=== PATIENT | female | born 1960 | race Caucasian/White ===

== ENCOUNTER 2021-08-17 15:30 | Observation (INO) | payer OTHER, SELFPAY ==
[2021-08-17] VITALS (8 sets, daily range): BP systolic 103–161; BP diastolic 61–104; PULSE 66–96; RESP 16–21; TEMP 36.4–36.9; O2SAT 94–96; BMI 26.4
--- NOTE | 2021-08-17 15:32 | XRR_ITS ---
PROCEDURE INFORMATION: Exam: XR Chest Exam date and time: 08/17/2021 3:32 PM Age: 61 years old Clinical indication: Pain; Chest pressure; Additional info: Cp TECHNIQUE: Imaging protocol: XR of the chest. Views: 1 view. COMPARISON: [facility] Chest 2 views 07/13/2016 8:12 AM FINDINGS: Lungs: Unremarkable. No consolidation. Pleural spaces: Unremarkable. No pleural effusion. No pneumothorax. Heart/Mediastinum: Unremarkable. No cardiomegaly. Bones/joints: Rotator cuff anchor noted in the right humeral head. Visualized osseous structures are intact. XR/XR chest 1V portable [id number] IMPRESSION: No acute findings.
--- NOTE | 2021-08-17 15:32 | ECG_ITS ---
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 Measurements Intervals [place] Rate: 100 P: 55 WV: 120 QRS: -22 QRSD: 81 T: 75 QT: 328 QTc: 424 Interpretive Statements SINUS TACHYCARDIA LOW QRS VOLTAGE IN PRECORDIAL LEADS [QRS DEFLECTION < 1.0 mV IN CHEST LEADS] PROBABLE INFERIOR MYOCARDIAL INFARCTION , PROBABLY OLD [35 ms Q WAVE IN II/aVF] No previous ECG available for comparison Electronically Signed On 08-18-2021 16:13:18 MEAT CUTTER by Rosemarie Mckeon M.D. [id number]
[2021-08-17 15:58] LABS: Basophils % 0.5 %; Eosinophils # 0.1 10^3/uL (0.0-0.8); Eosinophils % 1.4 %; Hematocrit 48.4 % (37.0-47.0); Hemoglobin 16.2 g/dL (11.5-15.3); Lymphocytes # 2.5 10^3/uL (0.8-4.8); Mean Corpuscular HGB Conc 33.5 g/dL (30.0-36.0); Mean Corpuscular Hemoglobin 30.6 pg (28.0-34.0); Mean Corpuscular Volume 91.5 fl (81-99); Mean Platelet Volume 10.1 fL (7.4-10.4); Monocytes # 0.8 10^3/uL (0.2-0.9); Monocytes % 9.1 %; Neutrophils # 5.24 10^3/uL (1.8-7.7); Neutrophils % 59.8 %; Nucleated Red Blood Cells % 0 %; Platelet Count 229 10^3/cmm (130-400); Red Blood Count 5.29 10^6/uL (4.1-5.3); White Blood Count 8.8 10^3/uL (4.0-10.0)
--- NOTE | 2021-08-17 16:21 | W.ED.GENADLT ---
HPI - General Adult General: Chief complaint: Chest Pain Stated complaint: Chest Pain Time Seen by Provider: 08/17/21 15:43 History of Present Illness: CC: Chest Pain HPI: This is a [61] yo patient hx of HTN, smoking presenting to the ED w/ acute onset intermittent substernal chest pain lasting for 5-10 minutes a time x 4 hours while at [employer]. She reports that while at [employer] this morning seen his son getting Quaker, patient felt chest pressure starting at rest. Patient says that over the last 3 days, the episodes of chest pressure has gotten significantly worse. Patient is currently followed by the [facility] and has an outpatient stress test due in 1 month. Patient has no exertional shortness of breath. The chest pain is not tearing in nature and does not radiate to the back. Endorse nausea but has no associated with vomiting or decreased PO intake. Denies any recent sympathomimetic drug use. Patient denies any cough. Denies palpitations, syncope symptoms. Pain not positional. Norecent immobility, surgery, unilateral leg swelling, or prior PE. Patient denies any orthopnea, paroxysmal nocturnal dyspnea, weight gain, or increased leg swellings. Onset: 4 hrs ago acutely, multiple episodes in the last 3 days Duration: ongoing for the last 3 days Location: home Severity: moderate Associated symptoms: Reports chest pain; Deny dyspnea, nausea, rash, palpitations or vomiting Review of Systems Const: Denies: fever(s) or chills Eyes: Denies: change in vision ENMT: Denies: mouth pain Card: Reports: chest pain; Denies: palpitations Resp: Denies: dyspnea or non-productive cough GI: Denies: abdominal pain, nausea, vomiting or diarrhea : Denies: dysuria Musc: Denies: extremity pain Skin/Breast: Denies: rash or new lesions Neuro: Denies: weakness in extremities Psych: Reports: other (Normal mood) Bertin/Lymph: Denies: easy bruising PFSH ED PFSH: Medical History (Updated 08/17/21 @ 16:23 by Yefri Landers MD) Hypertension Social History (Updated 08/17/21 @ 16:23 by Yefri Landers MD) Smoking and tobacco status: current every day smoker Alcohol intake: never Substance/Drug Use: never Physical Exam Const: COMMON NORMALS: alert HENMT: COMMON NORMALS: atraumatic HEAD & SCALP: atraumatic MOUTH: moist mucous membranes not abnormal Eye: COMMON NORMALS: EOMs intact bilaterally and conjunctivae normal CONJUNCTIVA: Yes conjunctivae normal Neck/C-Spine: COMMON NORMALS: full ROM and supple Resp: COMMON NORMALS: normal respiratory effort and clear to auscultation bilaterally AUSCULTATION: clear to auscultation bilaterally Cardio: COMMON NORMALS: regular rate RATE: regular rate OTHER: 2+ radial pulses b/l GI: COMMON NORMALS: Soft to palpation and non-tender PALPATION: Yes Soft to palpation Extremity: COMMON NORMALS: full ROM Neuro: SENSORIUM/ORIENTATION: Yes alert MOTOR EXAM: No Abnormal motor strength present and Other motor observations present (no focal motor deficits) Psych: COMMON NORMALS: speech normal SPEECH: Yes normal speech MOOD & AFFECT: Yes euthymic mood Course Vital Signs: Vital signs: Vital Signs Temperature 98.1 F 08/17/21 15:55 Pulse Rate 90 08/17/21 15:55 Respiratory Rate 16 08/17/21 15:55 Blood Pressure 148/104 08/17/21 15:55 Pulse Oximetry 95 08/17/21 15:55 MDM - General Adult Medical Decision Making [61]yo patient w/ hx of HTN and smoking presenting to the ED With acute substernal chest pain X 4 hrs with hx of similar prior pain. Currently mild chest pain. Patient received ASA and nitro in the ED with improvement in symptoms of chest pressure. Given History And Exam today I have moderate to high suspicion for ACS/UA/NSTEMI. Today, I have NO suspicion for pneumothorax, pneumonia, pulmonary embolus, tamponade, aortic dissection or other emergent problem as a cause for this presentation. ECG did not show any signs of acute STEMI. Workup: ECG x 2, CXR, CBC, BMP, Troponin x 2 Intervention: ASA 325mg, SL nitroglycerin Findings: ECG: No overt evidence of STEMI, hyperacute T waves, localizable STD or T wave inversions. No evidence of Brugada?s sign, delta wave, epsilon wave, significantly prolonged QTc, or malignant arrhythmia. No Q waves. Troponin: Negative x 1 Other Labs unremarkable for emergent problems. CXR: Without PTX, PNA, or widened mediastinum HEART score: 5 [5:30pm] On reassessment, the patient is currently chest pain free. S/p aspirin 325mg. Pending repeat troponin. HDS, AAOx3, no signs of respiratory distress. EKG is nonishcemic. First troponin wnl. Chest pain improved with morphine and nitroglycerin. Disposition: Inpatient admission. Lab Data : 08/17/21 15:48 08/17/21 15:48 Radiology Impressions Chest X-Ray 08/17/21 15:32 IMPRESSION: No acute findings. Laboratory Results WBC 8.8 10^3/uL (4.0-10.0) 08/17/21 15:48 RBC 5.29 10^6/uL (4.1-5.3) 08/17/21 15:48 Hgb 16.2 g/dL (11.5-15.3) H 08/17/21 15:48 Hct 48.4 % (37.0-47.0) H 08/17/21 15:48 MCV 91.5 fl (81-99) 08/17/21 15:48 MCH 30.6 pg (28.0-34.0) 08/17/21 15:48 MCHC 33.5 g/dL (30.0-36.0) 08/17/21 15:48 RDW 13.0 % (12.1-15.1) 08/17/21 15:48 Plt Count 229 10^3/cmm (130-400) 08/17/21 15:48 MPV 10.1 fL (7.4-10.4) 08/17/21 15:48 Neut % (Auto) 59.8 % 08/17/21 15:48 Lymph % (Auto) 29.0 % 08/17/21 15:48 Duchesne % (Auto) 9.1 % 08/17/21 15:48 Eos % (Auto) 1.4 % 08/17/21 15:48 Baso % (Auto) 0.5 % 08/17/21 15:48 Neut # (Auto) 5.24 10^3/uL (1.8-7.7) 08/17/21 15:48 Lymph # (Auto) 2.5 10^3/uL (0.8-4.8) 08/17/21 15:48 Duchesne # (Auto) 0.8 10^3/uL (0.2-0.9) 08/17/21 15:48 Eos # (Auto) 0.1 10^3/uL (0.0-0.8) 08/17/21 15:48 Baso # (Auto) 0.0 10^3/uL (0.0-0.1) 08/17/21 15:48 Nucleated RBC % (auto) 0 % 08/17/21 15:48 Nucleated RBCs # 0.0 /100WBC 08/17/21 15:48 Sodium 137 mmol/L (136-145) 08/17/21 15:48 Potassium 4.0 mmol/L (3.5-5.1) 08/17/21 15:48 Chloride 101 mmol/L (98-107) 08/17/21 15:48 Carbon Dioxide 25 mmol/L (22-29) 08/17/21 15:48 Anion Gap 15.0 (5-19) 08/17/21 15:48 BUN 14 mg/dL (8-23) 08/17/21 15:48 Creatinine 0.6 mg/dL (0.5-0.9) 08/17/21 15:48 GFR Calculation 101.6 mL/min (90-130) 08/17/21 15:48 Glucose 203 mg/dL (65-115) H 08/17/21 15:48 Calculated Osmolality 290 mOsm/kg (285-295) 08/17/21 15:48 Calcium 10.0 mg/dL (8.5-10.5) 08/17/21 15:48 Total Bilirubin 0.2 mg/dL (0.15-1.2) 08/17/21 15:48 AST 19 U/L (0-32) 08/17/21 15:48 ALT 21 U/L (0-33) 08/17/21 15:48 Alkaline Phosphatase 72 IU/L (35-105) 08/17/21 15:48 Troponin T Baseline 6 ng/L (0-10) 08/17/21 15:48 Total Protein 7.6 g/dL (6.6-8.7) 08/17/21 15:48 Albumin 4.3 g/dL (3.5-5.2) 08/17/21 15:48 Globulin 3.3 g/dL (1.3-4.6) 08/17/21 15:48 Imaging Data Other Imaging: Radiologist's impression: Launch?Image General Specific [address] [place] [address] XRay Report Signed Patient: Michelle Esposito Unit #: [id number] : 1960 Age/Sex: 61 / F ADM Date: 08/17/21 Loc: ER Room/Bed: Attending Dr: Ordering Provider/Ordering MD: Truman Camarena MD Date of Service: 08/17/21 Procedure(s): XR chest 1V portable [id number] Accession Number(s): [id number] Report Number: [id number] PROCEDURE INFORMATION: Exam: XR Chest Exam date and time: 08/17/2021 3:32 PM Age: 61 years old Clinical indication: Pain; Chest pressure; Additional info: Cp TECHNIQUE: Imaging protocol: XR of the chest. Views: 1 view. COMPARISON: [facility] Chest 2 views 07/13/2016 8:12 AM FINDINGS: Lungs: Unremarkable. No consolidation. Pleural spaces: Unremarkable. No pleural effusion. No pneumothorax. Heart/Mediastinum: Unremarkable. No cardiomegaly. Bones/joints: Rotator cuff anchor noted in the right humeral head. Visualized osseous structures are intact. XR/XR chest 1V portable [id number] IMPRESSION: No acute findings. ? Dictated By: Blue Taylor DO Signed By: Blue Taylor DO Signed Date/Time: 08/17/21 1609 DD/ 1532 Discharge Plan Discharge Patient Disposition: Admitted As Inpatient Clinical Impression: Chest pain Condition: Stable Coding Level of Care Code ED Parks Recreation Director for Chg Fwd Exam Comprehensive
[2021-08-17 16:23] LABS: Troponin(5th) Baseline 6 ng/L (0-10)
[2021-08-17] MEDS: aspirin 325 mg Tablet PO (16:27)
[2021-08-17 16:28] LABS: Alanine Aminotransferase 21 U/L (0-33); Albumin Level 4.3 g/dL (3.5-5.2); Alkaline Phosphatase 72 IU/L (35-105); Aspartate Amino Transferase 19 U/L (0-32); Blood Urea Nitrogen 14 mg/dL (8-23); Carbon Dioxide 25 mmol/L (22-29); Chloride 101 mmol/L (98-107); Globulin 3.3 g/dL (1.3-4.6); Glomerular Filtration Rate 101.6 mL/min (90-130); Glucose 203 mg/dL (65-115); Osmolality Calculated 290 mOsm/kg (285-295); Sodium 137 mmol/L (136-145); Total Bilirubin 0.2 mg/dL (0.15-1.2); Total Protein 7.6 g/dL (6.6-8.7)
[2021-08-17] MEDS: nitroglycerin 0.4 mg sublingual Tablet SUBLINGUAL (16:28)
[2021-08-17] MEDS: magnesium sulfate premix 2 GM/50 ML PIGGYBACK IV (16:54)
[2021-08-17] MEDS: sodium chloride 0.9% 1,000 ML 999 ML IV (16:54)
[2021-08-17] MEDS: morphine 4 mg/mL SDV 1 mL 2 MG IVP (16:54)
[2021-08-17] MEDS: diphenhydrAMINE 50 mg/mL SDV 1mL IVP (16:55)
[2021-08-17] MEDS: metoclopramide 5 mg/mL SDV 2 mL 10 MG IVP (16:55)
--- NOTE | 2021-08-17 17:32 | ECG_ITS ---
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 Measurements Intervals [place] Rate: 62 P: 39 IA: 155 QRS: -6 QRSD: 91 T: 56 QT: 417 QTc: 426 Interpretive Statements SINUS RHYTHM LOW QRS VOLTAGE IN PRECORDIAL LEADS [QRS DEFLECTION < 1.0 mV IN CHEST LEADS] INFERIOR MYOCARDIAL INFARCTION , OF INDETERMINATE AGE [40+ ms Q WAVE AND/OR ST/T ABNORMALITY IN II/aVF] Compared to ECG 08/17/2021 15:36:47 Sinus tachycardia no longer present Myocardial infarct finding still present Electronically Signed On 08-18-2021 16:22:06 PEOPLESOFT HCM CONSULTANT by Rosemarie Mckeon M.D. [id number]
--- NOTE | 2021-08-17 20:52 | PM.HP ---
Providers/Chief Complaint Admitting Physician: Vinny Kraft Primary Care Provider: Estevan Huang DO Chief Complaint: Chest Pain History of Present Illness 61-year-old lady with history of hypertension, current smoker, who has been experiencing episodic lightheadedness for about a week. In the last 72 hours he is also been experiencing chest pressure, central, most the time not radiating anywhere, not exacerbated by any particular action, denies any trauma recently, denies that it is worsened by inspiration, did have some painful swallowing occasionally in the past, but not currently, denies reproducibility on chest palpation. Denies fever chills. Denies cough. With pressure occasionally does feel like she might lack being able to catch a deep breath. Today she reports she had had increased frequency of these episodes, lasting 5-10 minutes, and has had at least 3 episodes. She received nitroglycerin in ER, states that she had developed a headache subsequently, it does seem like nitroglycerin did relieve her discomfort almost entirely. At one point she felt that the pressure was radiating to her back, although it was mild. She had not had any persistence of those symptoms. Blood pressures were checked in both arms in ER, and were 128/76 in the left, 124/74 on the right. Chest x-ray in ER without acute findings. Initial troponin , 2-hour also 6. EKG with Q waves inferiorly. She currently has mild if any discomfort. She denies past history of WI. She reports she had an episode that was thought to be a TIA in 2012. Due to this she continues taking low-dose aspirin. She reports she did not feel comfortable taking additional medications at that time, and so is not on statin. Takes lisinopril for hypertension. She states she has been stressed recently. Review of Systems Const: Denies: fever(s), chills, body aches or malaise Eyes: Denies: change in vision or eye redness ENMT: Denies: throat pain, oral sores or ear or mastoid pain Card: Reports: chest pain; Denies: edema, pre-syncope or dyspnea on exertion Resp: Denies: dyspnea, productive cough, change in phlegm color or hemoptysis GI: Denies: abdominal pain, nausea, vomiting, diarrhea, constipation, hematochezia or melena : Denies: flank pain, urinary frequency or hematuria Musc: Denies: back pain, joint swelling or joint redness Skin/Breast: Denies: rash, sores or new lesions Neuro: Denies: headache(s), numbness in extremities, weakness in extremities, dizziness, confusion or seizure-like activity Endo: Denies: polyuria or polydipsia Bertin/Lymph: Denies: easy bleeding or purpura All/Imm: Denies: urticaria, throat swelling or tongue swelling Medications/Allergies Home Medications Medication Instructions Recorded Confirmed Last Taken Type albuterol sulfate 90 mcg/actuation 2 puff INHALATION QID PRN 08/17/21 08/17/21 Unknown History aerosol inhaler aspirin 81 mg chewable tablet 81 mg PO DAILY 08/17/21 08/17/21 08/16/21 History desvenlafaxine succinate 25 mg 25 mg PO DAILY 08/17/21 08/17/21 08/17/21 History tablet,extended release 24 hr fluticasone propionate 50 1 spray INTRANASAL BID PRN 08/17/21 08/17/21 Unknown History mcg/actuation nasal spray,suspension (Flonase Allergy Relief) lactobacillus combination no.4 3 3,000 mmu cells PO DAILY 08/17/21 08/17/21 Unknown History billion cell capsule (Probiotic) levothyroxine 75 mcg tablet 75 mcg PO DAILY 08/17/21 08/17/21 08/17/21 History lisinopril 20 mg tablet 20 mg PO DAILY 08/17/21 08/17/21 08/17/21 History multivitamin 1 tab PO DAILY 08/17/21 08/17/21 Unknown History Allergies Allergy/AdvReac Type Severity Reaction Status Date / Time zolmitriptan [From Zomig] Allergy ALGY-Difficulty Verified 08/17/21 15:40 Breathing PFSH Acute PFSH: Medical History Hypertension Surgical History (Updated 08/17/21 @ 21:06 by Vinny Kraft MD) H/O cervical spine surgery Family History Other Heart disease Social History Smoking and tobacco status: current every day smoker Quit status (tobacco): considering quitting Alcohol intake: never Substance/Drug Use: never Household members: spouse Marital status: Vitals/I&O/Wt Last Vital Signs Temp 97.5 F L 08/17/21 19:05 Pulse 66 08/17/21 19:05 Resp 20 H 08/17/21 19:05 BP 115/65 08/17/21 19:05 Pulse Ox 96 08/17/21 19:05 08/17/21 08/17/21 08/17/21 06:59 14:59 22:59 Intake Total 1050 / 1050 Balance 1050 / 1050 Weight last 48 hrs Weight 76.476 kg Weight 74.389 kg Physical Exam Const: COMMON NORMALS: no acute distress and patient oriented x3 HENMT: COMMON NORMALS: oropharynx normal Neck/C-Spine: COMMON NORMALS: no JVD Resp: COMMON NORMALS: normal respiratory effort and clear to auscultation bilaterally AUSCULTATION: clear to auscultation bilaterally Cardio: COMMON NORMALS: no JVD, regular rhythm, S1 normal heart sound present, S2 normal heart sound present and No murmurs present (Cardio) RHYTHM: regular rhythm HEART SOUNDS: S1 normal heart sound present and S2 normal heart sound present GI: COMMON NORMALS: Normal to inspection, nondistended, normoactive bowel sounds present, Soft to palpation and non-tender PALPATION: Yes Soft to palpation Extremity: COMMON NORMALS: no joint enlargement and no pedal edema Neuro: COMMON NORMALS: patient oriented x3 and moves all extremities Skin: COMMON NORMALS: no rashes or lesions noted GENERAL SKIN EXAM: no rashes or lesions noted Data : 08/17/21 15:48 08/17/21 15:48 A&P Assessment and plan (1) Chest pain: Episodes of chest pressure, she reports with multiple episodes today, with intensification pain. 2 last 72 hours. Possible unstable angina. Started on aspirin. Heart rate in the slower side, hold beta-camacho. Lovenox. Monitor on telemetry. Assess TTE. Chest pain is nearly entirely resolved currently. We will request stress test for tomorrow, however, discussed with her to notify in case of recurrence of symptoms at which point we discussed cardiology consultation would be obtained instead. Status: Acute (2) Smoking addiction: We discussed [place] cessation for 4 minutes. She states she had tried quitting in the past. She states that as of 9:00 in the morning today she has quit. Continue to encourage cessation. Nicotine replacement if needed for cravings. Status: Acute Plan HTN: Monitor blood pressures Attestations Medical Necessity Statement*: Place in observation for additional assessment of episodes of chest pain with risk factors of CAD. Coding Level of Care Code Acute Artificial Breeding Technician for Lashanda Maciel Diagnoses Chest pain R07.9 Smoking addiction F17.200
--- NOTE | 2021-08-17 21:32 | ECG_ITS ---
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 Measurements Intervals [place] Rate: 69 P: 39 [place]: 163 QRS: -5 QRSD: 85 T: 53 QT: 408 QTc: 440 Interpretive Statements SINUS RHYTHM WITH OCCASIONAL SUPRAVENTRICULAR PREMATURE COMPLEXES LOW QRS VOLTAGE IN PRECORDIAL LEADS [QRS DEFLECTION < 1.0 mV IN CHEST LEADS] INFERIOR MYOCARDIAL INFARCTION , OF INDETERMINATE AGE [40+ ms Q WAVE AND/OR ST/T ABNORMALITY IN II/aVF] Compared to ECG 08/17/2021 18:26:48 No significant changes Electronically Signed On 08-18-2021 16:21:53 COM WRITER by Rosemarie Mckeon M.D. [id number]
[2021-08-17] MEDS: enoxaparin 100 mg/mL Syringe 80 MG SUBCUT (22:37)
--- NOTE | 2021-08-18 02:16 | ECG_ITS ---
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 Measurements Intervals [place] Rate: 67 P: 47 [place]: 164 QRS: 9 QRSD: 78 T: 61 QT: 389 QTc: 411 Interpretive Statements SINUS RHYTHM LOW QRS VOLTAGE IN PRECORDIAL LEADS [QRS DEFLECTION < 1.0 mV IN CHEST LEADS] POSSIBLE ANTERIOR MYOCARDIAL INFARCTION , OF INDETERMINATE AGE [30 ms Q WAVE IN V3/V4, OR R < 0.2 mV IN V4] POSSIBLE INFERIOR MYOCARDIAL INFARCTION , OF INDETERMINATE AGE [30 ms Q WAVE IN II/aVF] Compared to ECG 08/17/2021 21:04:12 No significant changes Electronically Signed On 08-18-2021 16:21:29 VERTICAL LATHE OPERATOR by Rosemarie Mckeon M.D. [id number]
[2021-08-18 02:21] VITALS: PULSE 74
[2021-08-18 02:31] LABS: Basophils % 0.3 %; Eosinophils # 0.1 10^3/uL (0.0-0.8); Eosinophils % 1.9 %; Hematocrit 43.6 % (37.0-47.0); Hemoglobin 14.2 g/dL (11.5-15.3); Lymphocytes # 2.7 10^3/uL (0.8-4.8); Lymphocytes % 37.8 %; Mean Corpuscular HGB Conc 32.6 g/dL (30.0-36.0); Mean Corpuscular Hemoglobin 30.5 pg (28.0-34.0); Mean Corpuscular Volume 93.8 fl (81-99); Mean Platelet Volume 10.3 fL (7.4-10.4); Monocytes # 0.7 10^3/uL (0.2-0.9); Monocytes % 9.1 %; Neutrophils # 3.66 10^3/uL (1.8-7.7); Neutrophils % 50.8 %; Nucleated Red Blood Cells % 0 %; Platelet Count 205 10^3/cmm (130-400); Red Blood Count 4.65 10^6/uL (4.1-5.3); Red Cell Distribution Width 13.2 % (12.1-15.1); White Blood Count 7.2 10^3/uL (4.0-10.0)
[2021-08-18 02:45] VITALS: BP 118/73; PULSE 71; RESP 21; TEMP 36.3; O2SAT 95
[2021-08-18 03:02] LABS: Blood Urea Nitrogen 16 mg/dL (8-23); Calcium 8.3 mg/dL (8.5-10.5); Carbon Dioxide 25 mmol/L (22-29); Chloride 106 mmol/L (98-107); Chol HDL Ratio 3.96 mg/dL (0.0-4.40); Cholesterol 198 mg/dL (0-200); Glomerular Filtration Rate 85.1 mL/min (90-130); Glucose 145 mg/dL (65-115); HDL Cholesterol 50 mg/dL (60-100); LDL Cholesterol Calculated 102 mg/dL (50-129); LDL HDL Ratio 2.04 RATIO (0.00-3.22); Osmolality Calculated 296 mOsm/kg (285-295); Sodium 141 mmol/L (136-145); Thyroid Stimulating Hormone 2.46 uIU/mL (0.27-4.20); Triglycerides 231 mg/dL (0-150)
[2021-08-18 03:04] LABS: Anion Gap 13.8 (5-19); Potassium 3.8 mmol/L (3.5-5.1)
--- NOTE | 2021-08-18 06:00 | XRR_ITS ---
PROCEDURE INFORMATION: Exam: XR Chest Exam date and time: 08/18/2021 6:00 AM Age: 61 years old Clinical indication: Other: Hpoxia; Additional info: Hypoxia TECHNIQUE: Imaging protocol: XR of the chest. Views: 1 view. COMPARISON: CR (CHEST, ) 08/17/2021 3:50 PM FINDINGS: Lungs: Unremarkable. No consolidation. Pleural spaces: Unremarkable. No pleural effusion. No pneumothorax. Heart/Mediastinum: Unremarkable. No cardiomegaly. Bones/joints: Unremarkable. XR/XR chest 1V portable [id number] IMPRESSION: No acute findings.
--- NOTE | 2021-08-18 06:00 | USCV_ITS ---
Michelle Esposito Age: 61 Gender: F : 1960 Exam Date: 08/18/2021 05:50 Ordering Phys: Vinny Kraft MD Technologist: CARISSA [place] [facility] [place]: Chest Pain BP: 118 / 73 HR: 67 Rhythm: Sinus Technical Quality: MEASUREMENTS (Male / Female) Normal Values 2D ECHO LV Diastolic Diameter PLAX 2.4 cm 4.2 - 5.9 / 3.9 - 5.3 cm LV Systolic Diameter PLAX 1.7 cm IVS Diastolic Thickness 1.2 cm 0.6 - 1.0 / 0.6 - 0.9 cm IVS Systolic Thickness 1.3 cm LVPW Diastolic Thickness 1.3 cm 0.6 - 1.0 / 0.6 - 0.9 cm LVPW Systolic Thickness 1.5 cm RV Chamber Size 2.4 cm LVOT Diameter 2.0 cm LV Ejection Fraction 2D Teich 57.2 % LV Ejection Fraction MOD 2C 49.3 % LV Ejection Fraction 2C AL 48.4 % LA Diameter 2.8 cm LA Width 2.9 cm LA Height 3.6 cm RA Width 2.8 cm RA Height 3.2 cm Aorta at Sinotubular Diameter 2.1 cm M-MODE Aortic Annulus Diameter 2.7 cm LA Ao Ratio MM 1.0 MV E Point Septal Separation 0.3 cm DOPPLER AV Peak Velocity 79.0 cm/s LVOT Peak Velocity 92.0 cm/s AV Area Cont Eq vti 3.4 cm squared AV Area Cont Eq pk 3.7 cm squared MV Area PHT 3.9 cm squared Mitral E to A Ratio 0.9 MV E' Velocity 72.0 cm/s TR Peak Velocity 225.0 cm/s TR Peak Gradient 20.3 mmHg TV Peak E Velocity 50.0 cm/s Right Atrial Pressure 3.0 mmHg Pulmonary Artery Systolic Pressu 23.3 mmHg PV Peak Velocity 51.3 cm/s RV Acceleration Time 0.1 s RV Ejection Time 0.3 s RV AcT/ET 0.3 FINDINGS Left Ventricle Normal left ventricular size. LV systolic function is normal with EF of 55-60%. No regional wall motion abnormalities. Right Ventricle The right ventricle is normal in size and function. Right Atrium The right atrium is normal in size. Left Atrium The left atrium is normal in size. Mitral Valve Structurally normal mitral valve without significant stenosis or prolapse. There is trace mitral regurgitation. Aortic Valve Structurally normal aortic valve without significant sclerosis or stenosis. There is no aortic regurgitation. Tricuspid Valve Structurally normal tricuspid valve without significant stenosis or regurgitation. Insufficient TR jet to calculate RVSP Pulmonic Valve Structurally normal pulmonic valve without significant stenosis. There is no pulmonic regurgitation. Pericardium Normal pericardium without effusion. Aorta Normal ascending aorta dimension. CONCLUSIONS LV systolic function is normal with EF of 55-60% No regional wall motion abnormalities Trace mitral regurgitation Compared to prior echocardiogram from 12/20/2018, no significant changes are noted Christopher Cuellar MD (Electronically Signed) Final Date: 18 August 2021 11:49 S
[2021-08-18 06:48] VITALS: BP 135/74; PULSE 68; RESP 20; TEMP 35.7; O2SAT 96
[2021-08-18] MEDS: regadenoson 0.4 Mg/5 ml Syringe IVP (07:42)
[2021-08-18 07:54] VITALS: BP 118/71; PULSE 93
--- NOTE | 2021-08-18 08:00 | ECG_ITS ---
[facility] Test Date: 2021-08-18 Pat Name: Michelle Esposito Department: Room: 105 Gender: Female Charcoal Unloader: Lachelle Onofre : 1960 Requested By: Vinny Kraft Order Number: [id number] Roly MD: Rosemarie Mckeon M.D. Interpretive Statements NAME OF STUDY: LEXISCAN SESTAMIBI STRESS TEST INDICATION: Chest Pain PROCEDURE: At the baseline, the blood pressure was 114/76 mmHg, oxygen saturation 91% with a heart rate of 71 bpm. The electrocardiogram showed normal sinus rhythm, normal axis. RSR' in V1 and V2 consider normal variant. The Lexiscan was infused over a period of 20 seconds. A total of 0.4 milligrams of Lexiscan was infused. The stress phase was continued for a total of 5 minutes. Heart rate at the end of the stress phase was 93 bpm, oxygen saturation 94% with a blood pressure of 82/65 mmHg. The EKG at the peak infusion revealed sinus rhythm with no significant ST-T wave changes. Sestamibi was injected 20 seconds after the Lexiscan infusion. Blood pressure at the end of the recovery phase was 118/71 mmHg, oxygen saturation 92% with a heart rate of 92 beats per minute. CONCLUSION: 1. No significant EKG changes with the LexiScan infusion. 2. No LexiScan induced chest pain or cardiac arrhythmia. 3. Normal blood pressure and heart rate response. 4. Sestamibi/sestamibi perfusion scan pending; see separate report. Electronically Signed On 08-18-2021 16:49:14 TIME CLOCK MECHANIC by Rosemarie Mckeon M.D. [email or web address] [email or web address] [id number]
[2021-08-18] MEDS: desvenlafaxine 50 mg Tablet 25 MG PO (09:52)
[2021-08-18] MEDS: aspirin 325 mg Tablet PO (09:53)
[2021-08-18] MEDS: levothyroxine 75 mcg Tablet PO (09:53)
--- NOTE | 2021-08-18 10:28 | P.DS_ITS ---
Discharge Providers Date of Admission: 08/17/21 16:58 Date of Discharge: August 18, 2021 Attending Provider at Admission: Vinny Kraft Attending Provider at Discharge: Violette Little MD Primary Care Provider: Estevan Huang DO Diagnoses at Discharge Discharge Diagnosis (1) Chest pain: Status: Acute (2) Smoking addiction: Status: Acute Reason for Visit Reason for Visit: Chest Pain Hospital Course Hospital Course Admission note done by Dr. Fountain 61-year-old lady with history of hypertension, current smoker, who has been experiencing episodic lightheadedness for about a week.? In the last 72 hours he is also been experiencing chest pressure, central, most the time not radiating anywhere, not exacerbated by any particular action, denies any trauma recently, denies that it is worsened by inspiration, did have some painful swallowing occasionally in the past, but not currently, denies reproducibility on chest palpation.? Denies fever chills.? Denies cough.? With pressure occasionally does feel like she might lack being able to catch a deep breath.? Today she reports she had had increased frequency of these episodes, lasting 5-10 minutes, and has had at least 3 episodes.? She received nitroglycerin in ER, states that she had developed a headache subsequently, it does seem like nitroglycerin did relieve her discomfort almost entirely.? At one point she felt that the pressure was radiating to her back, although it was mild.? She had not had any persistence of those symptoms.? Blood pressures were checked in both arms in ER, and were 128/76 in the left, 124/74 on the right.? Chest x-ray in ER without acute findings.? Initial troponin , 2-hour also 6.? EKG with Q waves inferiorly.? She currently has mild if any discomfort. She denies past history of LA.? She reports she had an episode that was thought to be a TIA in 2012.? Due to this she continues taking low-dose aspirin.? She reports she did not feel comfortable taking additional medications at that time, and so is not on statin.? Takes lisinopril for hypertension. She states she has been stressed recently. Hospital course At the time of my evaluation on 08/18 patient was asymptomatic Normal hemodynamics, she was saturating well on room air, no recurrence of chest pain Stress test negative for any signs of ischemia, echo report is pending Patient will be discharged home, I have not changed any of her medications, triglyceride 231, HDL 50, LDL 102 TSH 2.4 She can continue aspirin and lisinopril Physical Exam Narrative: Patient was laying supine Saturating well on room air Nonfocal neuro exam Abdomen soft Nonlabored breathing S1, S2 at the bedside Discharge Data Studies Completed and Pending Completed Studies During Hospitalization Category Date Time Status Sestamibi Stress Test Request Routine Exams 08/18/21 08:00 Draft XR chest 1V portable [id number] Routine Exams 08/18/21 06:00 Completed XR chest 1V portable [id number] Stat Exams 08/17/21 15:32 Completed NM alvina perf SPECT r/s* [id number] Routine Nuc Med 08/18/21 21:08 Completed Pending at discharge Category Date Time Status Basic Metabolic Panel AM LABS Lab 08/19/21 04:00 Ordered Basic Metabolic Panel AM LABS Lab 08/20/21 04:00 Ordered Complete Blood Count w/Auto AM LABS Lab 08/19/21 04:00 Ordered Complete Blood Count w/Auto AM LABS Lab 08/20/21 04:00 Ordered CV. echo complete* [id number] Routine Ultrasound 08/18/21 06:00 Taken Radiology Impressions Chest X-Ray 08/18/21 06:00 IMPRESSION: No acute findings. Laboratory Results WBC 7.2 10^3/uL (4.0-10.0) 08/18/21 02:00 RBC 4.65 10^6/uL (4.1-5.3) 08/18/21 02:00 Hgb 14.2 g/dL (11.5-15.3) 08/18/21 02:00 Hct 43.6 % (37.0-47.0) 08/18/21 02:00 MCV 93.8 fl (81-99) 08/18/21 02:00 MCH 30.5 pg (28.0-34.0) 08/18/21 02:00 MCHC 32.6 g/dL (30.0-36.0) 08/18/21 02:00 RDW 13.2 % (12.1-15.1) 08/18/21 02:00 Plt Count 205 10^3/cmm (130-400) 08/18/21 02:00 MPV 10.3 fL (7.4-10.4) 08/18/21 02:00 Neut % (Auto) 50.8 % 08/18/21 02:00 Lymph % (Auto) 37.8 % 08/18/21 02:00 Crosby % (Auto) 9.1 % 08/18/21 02:00 Eos % (Auto) 1.9 % 08/18/21 02:00 Baso % (Auto) 0.3 % 08/18/21 02:00 Neut # (Auto) 3.66 10^3/uL (1.8-7.7) 08/18/21 02:00 Lymph # (Auto) 2.7 10^3/uL (0.8-4.8) 08/18/21 02:00 Crosby # (Auto) 0.7 10^3/uL (0.2-0.9) 08/18/21 02:00 Eos # (Auto) 0.1 10^3/uL (0.0-0.8) 08/18/21 02:00 Baso # (Auto) 0.0 10^3/uL (0.0-0.1) 08/18/21 02:00 Nucleated RBC % (auto) 0 % 08/18/21 02:00 Nucleated RBCs # 0.0 /100WBC 08/18/21 02:00 Sodium 141 mmol/L (136-145) 08/18/21 02:00 Potassium 3.8 mmol/L (3.5-5.1) 08/18/21 02:00 Chloride 106 mmol/L (98-107) 08/18/21 02:00 Carbon Dioxide 25 mmol/L (22-29) 08/18/21 02:00 Anion Gap 13.8 (5-19) 08/18/21 02:00 BUN 16 mg/dL (8-23) 08/18/21 02:00 Creatinine 0.7 mg/dL (0.5-0.9) 08/18/21 02:00 GFR Calculation 85.1 mL/min (90-130) L 08/18/21 02:00 Glucose 145 mg/dL (65-115) H 08/18/21 02:00 Calculated Osmolality 296 mOsm/kg (285-295) H 08/18/21 02:00 Calcium 8.3 mg/dL (8.5-10.5) L 08/18/21 02:00 Total Bilirubin 0.2 mg/dL (0.15-1.2) 08/17/21 15:48 AST 19 U/L (0-32) 08/17/21 15:48 ALT 21 U/L (0-33) 08/17/21 15:48 Alkaline Phosphatase 72 IU/L (35-105) 08/17/21 15:48 Troponin T Baseline 6 ng/L (0-10) 08/17/21 15:48 Troponin T 120 Minute 6.00 ng/L (0-10) 08/17/21 17:45 Delta Troponin T Not Reportable 08/17/21 17:45 Troponin T Hi Sens 6Hr 6.00 ng/L (0-10) 08/17/21 22:12 Troponin T Hi Sens 6Hr Delta Not Reportable 08/17/21 22:12 Total Protein 7.6 g/dL (6.6-8.7) 08/17/21 15:48 Albumin 4.3 g/dL (3.5-5.2) 08/17/21 15:48 Globulin 3.3 g/dL (1.3-4.6) 08/17/21 15:48 Triglycerides 231 mg/dL (0-150) H 08/18/21 02:00 Cholesterol 198 mg/dL (0-200) 08/18/21 02:00 LDL Cholesterol, Calc 102 mg/dL (50-129) 08/18/21 02:00 HDL Cholesterol 50 mg/dL (60-100) L 08/18/21 02:00 LDL/HDL Ratio 2.04 RATIO (0.00-3.22) 08/18/21 02:00 Cholesterol/HDL Ratio 3.96 mg/dL (0.0-4.40) 08/18/21 02:00 TSH 2.46 uIU/mL (0.27-4.20) 08/18/21 02:00 Vitals Last Vital Signs Temp 96.2 F L 08/18/21 06:48 Pulse 93 08/18/21 07:54 Resp 20 H 08/18/21 06:48 BP 118/71 08/18/21 07:54 Pulse Ox 96 08/18/21 06:48 Discharge Plan Discharge Patient Disposition: Home Condition: Stable Prescriptions: Continued lisinopril 20 mg Tablet 20 mg PO DAILY 0RF levothyroxine 75 mcg tablet 75 mcg PO DAILY 0RF aspirin 81 mg Tablet,Chewable 81 mg PO DAILY 0RF albuterol sulfate 90 mcg/actuation HFA aerosol inhaler 2 puff INHALATION QID PRN (Reason: Shortness Of Breath) 0RF desvenlafaxine succinate 25 mg tablet extended release 24 hr 25 mg PO DAILY 0RF multivitamin Tablet 1 tab PO DAILY 0RF Flonase Allergy Relief 50 mcg/actuation Thicket,Suspension 1 spray INTRANASAL BID PRN (Reason: Nasal Congestion) 0RF Rx Instructions: administer into each nostril Probiotic 3 billion cell Capsule 3,000 mmu cells PO DAILY 0RF Rx Instructions: administer with a meal Discharge Orders: Discharge Order (Routine); Ordered 08/18/21 Ordered By: Violette Little Referrals: Estevan Huang DO [Primary Care Provider] - 7-10 days Discharge Diet: Cardiac Discharge Activity: Increase activity as tolerated Patient Instructions: How to Stop Smoking (DC), Opioid Safety Discharge Attestations Time Spent in Discharge Care*: less than 30 min Quality Metrics Clinical Quality Measures [ No reported AMI, CVA or VTE this stay] Coding Level of Care Code Acute Chg FW DC note Diagnoses Chest pain R07.9 Smoking addiction F17.200
--- NOTE | 2021-08-18 11:02 | PC.CHAP ---
Pastoral Care Encounter/Spiritual Assessment Type of Contact [] Declined chair spring assembler visit [] Patient/Family/Request visit [] Outpatient visit [] Follow-up visit [] Physician referral [] Code/Alert [x] Routine visit [] Staff referral [] Actively dying [] Patient sleeping [x] Family support [] [] Out of room [] Palliative care [] [] Receiving care in room [] Pre-surgical visit [] Trauma [] Long length of stay [] ICU visit [] Other: Relational/Emotional Strength [] Patient feels connected with others/family/visitors/staff [] Distress [] Loneliness/isolation [] Abandonment Spirituality of Patient [] Person of Cara [] Attends Faith of their Cara [] Believes in Prayer [] Reads Bible or Bahai materials [] There are Spiritual issues to be addressed Information Technology Intern Interventions [x] Prayer [x] Active listening [x] Non-anxious presence [x] Spiritual/emotional support [] Crisis/trauma care [] Spiritual counseling [] Bereavement support [] Provided bereavement packet [] Provided Bible/devotional materials [] Provided toy/stuffed animal, coloring book to patient or family member [] Provided Communion [] Anointing/[place] [] Salvation [x] Completed spiritual assessment [] Other: Impact on Illness or Injury [] Angry [] Fearful [] Anxious [] Often cries [] Exhaustion [] Unable to work [] Unable to attend restoration [] Unable to walk/stand [] Unable to read [] Unable to drive [] Unable to eat/drink [] Unable to sleep [] Unable to be with family [] Patient intubated [] Other: Summary entered in by ER... ran tests getting results today Time spent with patient 10 min
[2021-08-18 11:14] VITALS: BP 141/86; PULSE 80; RESP 18; TEMP 36.7; O2SAT 98
--- NOTE | 2021-08-18 11:23 | PC.NURSE ---
Discharge Note Patient discharged to home via private vehicle accompanied by spouse. All lines removed. Discharge instructions reviewed with patient and/or representative government relations. Patient verbalized understanding of all teaching. Mobile pharmacy medications and/or prescriptions provided. Belongings/home medications returned.
--- NOTE | 2021-08-18 21:08 | NMCV_ITS ---
2 Michelle Esposito Age: 61 Gender: F : 1960 Exam Date: 08/18/2021 06:45 Ordering Phys: Vinny Kraft MD Technologist: MIRYAM Gary Exam Location: [facility] Indications: CHEST PAIN STRESS TEST [facility] IMAGE PROTOCOL Rest/Stress 1 Lexiscan Day Radiopharmaceutical Dose (mCi) Administration Site Administered by Rest: Tc-99m 10.9 IV MIRYAM Hull Sestamibi Stress:Tc-99m 32.6 IV MIRYAM Hull Sestamibi Rest: 18-Aug-2021 60 Discovery 630 Stress: 18-Aug-2021 30 Discovery 630 0.4mg Lexiscan. Images obtained in supine and prone position. SPECT RESULTS Technical Quality: Excellent Raw Data Analysis: Normal Image Corrections: No attenuation or motion correction applied Summed Stress Score: 0 Summed Rest Score: 0 Summed Difference Score: 0 PERFUSION FINDINGS SPECT images demonstrate homogeneous tracer distribution throughout the myocardium. FUNCTIONAL RESULTS (calculated via Gated SPECT) Stress Image LV EF (%): 80 Stress EDV (mL):56 TID: 1.04 Stress ESV (mL):11 FUNCTIONAL FINDINGS: There is normal left ventricular systolic function. IMPRESSIONS 1. Normal myocardial perfusion imaging with no evidence of ischemia 2. LV systolic function is normal Christopher Cuellar MD (Electronically Signed) Final Date: 18 August 2021 09:55 S
== END 2021-08-18 11:30 | disposition home or self-care (01) ==
LOC: ER 17:03 → CSU 17:07
PROVIDERS: Emergency Medicine; Admitting Provider Internal Medicine; Emergency Provider Emergency Medicine; PCP Electrodiagnostic Medicine; Visit Provider Internal Medicine
DX: R07.89 Other chest pain (principal); F17.210 Nicotine dependence, cigarettes, uncomplicated; I10 Essential (primary) hypertension; Z86.73 Personal history of transient ischemic attack (TIA), and cerebral infarction without residual deficits; Z79.82 Long term (current) use of aspirin; Z98.1 Arthrodesis status; Z82.49 Family history of ischemic heart disease and other diseases of the circulatory system; R09.02 Hypoxemia
CPT/HCPCS: 36415; 71045; 78452; 80048; 80053; 80061; 84443; 84484; 85025; 93005; 93017; 93306; 96365; 96372; 96375; 99285; A9500; G0378; J1200; J1650; J2270; J2765; J2785; J3475; J7030

== ENCOUNTER → 2021-10-01 12:00 | Outpatient (BNVA) | payer OTHER, SELFPAY | PROVIDERS: PCP Electrodiagnostic Medicine; Visit Provider Internal Medicine | DX: I10 Essential (primary) hypertension (principal); R07.9 Chest pain, unspecified; R00.2 Palpitations; F17.210 Nicotine dependence, cigarettes, uncomplicated; Z79.82 Long term (current) use of aspirin | CPT/HCPCS: 99203; 99204 ==

== ENCOUNTER → 2021-10-09 12:54 | Outpatient (BNVA) | payer OTHER, SELFPAY | PROVIDERS: PCP Electrodiagnostic Medicine; Visit Provider Internal Medicine | DX: R00.2 Palpitations (principal); I48.91 Unspecified atrial fibrillation; R00.1 Bradycardia, unspecified; R00.0 Tachycardia, unspecified | CPT/HCPCS: 93270 ==

== ENCOUNTER → 2021-10-14 15:34 | Outpatient (BNVA) | payer OTHER, SELFPAY | PROVIDERS: PCP Electrodiagnostic Medicine; Visit Provider Internal Medicine | DX: I48.91 Unspecified atrial fibrillation (principal); R07.9 Chest pain, unspecified; I10 Essential (primary) hypertension; R00.2 Palpitations; F17.200 Nicotine dependence, unspecified, uncomplicated | CPT/HCPCS: 99214 ==

== ENCOUNTER 2021-11-18 07:58 | Outpatient (CLI) | payer OTHER, SELFPAY ==
--- NOTE | 2021-11-18 08:12 | MM_ITS ---
WS: [email or web address] SCREENING DIGITAL BREAST TOMOSYNTHESIS MAMMOGRAM WITH CAD HISTORY: SCREENING COMPARISON: 11/03/2018 and 11/23/2016 Bilateral CC and MLO with tomosynthesis and synthetic mammography submitted. Computer aided detection analyzed. Breast composition: There are scattered areas of fibroglandular density. No suspicious masses or calc ifications. 5 mm ovoid asymmetry in the posterior RIGHT breast may have been present on prior studies . Seen only on the MLO projection. No architectural distortion. MM/[place] [id number] IMPRESSION: BI-RADS: 0-Incomplete: Need additional imaging evaluation FOLLOW UP: Need Additional Imaging Patient describes a palpable abnormality in the RIGHT breast which needs to be further evaluated. The 5 mm ovoid asymmetry seen on the RIGHT MLO may correspon d to this palpable abnormality. Recommend follow-up additional spot compression views and ultrasound.
== END 2021-11-18 07:59 | disposition home or self-care (01) ==
PROVIDERS: PCP Electrodiagnostic Medicine; Visit Provider Nurse Practitioner
DX: Z12.31 Encounter for screening mammogram for malignant neoplasm of breast (principal)
CPT/HCPCS: 77063; 77067

== ENCOUNTER 2021-12-10 10:25 | Outpatient (CLI) | payer OTHER, SELFPAY ==
--- NOTE | 2021-12-10 10:32 | MM_ITS ---
WS: [email or web address] ADDITIONAL VIEWS RIGHT MAMMOGRAM WITH DIGITAL BREAST TOMOSYNTHESIS. RIGHT BREAST ULTRASOUND HISTORY: ABNORMAL MAMMOGRAM COMPARISON: 11/18/2021, 11/03/2018 RIGHT MAMMOGRAM: Spot compression views and true ML with digital breast tomosynthesis and SM. Palpable marker is placed along the lateral RIGHT breast near 9:00. There is an underlying well-circu mscribed 5 mm nodule which is closely associated with the palpable marker. No calcifications or disto rtion. RIGHT BREAST ULTRASOUND 2-D and color Doppler imaging submitted. No abnormality is identified by ultrasound. MM/[place] [id number] IMPRESSION: BI-RADS: 3-Probably Benign FOLLOW UP: 6 Month Follow-up Recommend diagnostic RIGHT mammogram follow-up in 6 months and possible ultraso und. Palpable area is a very small nodule which may be a subcutaneous cyst. Not identified by ultrasound. Therefore, recommend 6 month follow-up.
== END 2021-12-10 10:26 | disposition home or self-care (01) ==
LOC: RAD 10:26
PROVIDERS: PCP Electrodiagnostic Medicine; Visit Provider Nurse Practitioner
DX: R92.8 Other abnormal and inconclusive findings on diagnostic imaging of breast (principal)
CPT/HCPCS: 76642; 77061

== ENCOUNTER → 2022-03-06 11:15 | Outpatient (BNVA) | payer OTHER, SELFPAY | PROVIDERS: PCP Electrodiagnostic Medicine; Visit Provider Internal Medicine Cardiovascular Disease | DX: I48.91 Unspecified atrial fibrillation (principal); I10 Essential (primary) hypertension; F17.200 Nicotine dependence, unspecified, uncomplicated; Z79.01 Long term (current) use of anticoagulants | CPT/HCPCS: 99214 ==

== ENCOUNTER 2022-06-11 09:50 | Outpatient (CLI) | payer OTHER, SELFPAY ==
--- NOTE | 2022-06-11 10:06 | US_ITS ---
WS: [email or web address] RIGHT DIGITAL TOMOSYNTHESIS MAMMOGRAPHY WITH CAD. RIGHT breast ultrasound, limited. HISTORY: 6 month follow-up. COMPARISON: 12/10/2021, 11/18/2021 Technique: CC, MLO and ML views. Spot compression RIGHT CC and MLO. Breast composition: There are scattered areas of fibroglandular density. Nodule is marked with a tri angular marker. Again noted is a 4 mm nodule adjacent to the palpable marker. Not increased in size a nd very difficult to visualize. Very benign in appearance. May be a small lymph node or sebaceous cys t. RIGHT breast ultrasound, limited. The palpable nodule is not identified again by ultrasound. US/US breast RT limited* [id number] IMPRESSION: BI-RADS: 3-Probably Benign FOLLOW UP: 6 Month Follow-up Patient to return in November 2022 for bilateral mammogram. This nodule can be reev aluated at that time for any increase in size. Very benign in appearance.
--- NOTE | 2022-06-11 10:18 | MM_ITS ---
WS: [email or web address] RIGHT DIGITAL TOMOSYNTHESIS MAMMOGRAPHY WITH CAD. RIGHT breast ultrasound, limited. HISTORY: 6 month follow-up. COMPARISON: 12/10/2021, 11/18/2021 Technique: CC, MLO and ML views. Spot compression RIGHT CC and MLO. Breast composition: There are scattered areas of fibroglandular density. Nodule is marked with a tri angular marker. Again noted is a 4 mm nodule adjacent to the palpable marker. Not increased in size a nd very difficult to visualize. Very benign in appearance. May be a small lymph node or sebaceous cys t. RIGHT breast ultrasound, limited. The palpable nodule is not identified again by ultrasound. MM/[place] [id number] IMPRESSION: BI-RADS: 3-Probably Benign FOLLOW UP: 6 Month Follow-up Patient to return in November 2022 for bilateral mammogram. This nodule can be reev aluated at that time for any increase in size. Very benign in appearance.
== END 2022-06-11 09:51 | disposition home or self-care (01) ==
PROVIDERS: PCP Electrodiagnostic Medicine; Visit Provider Nurse Practitioner
DX: R92.8 Other abnormal and inconclusive findings on diagnostic imaging of breast (principal)
CPT/HCPCS: 76642; 77061; G0279

== ENCOUNTER 2022-07-07 13:18 | Outpatient (CLI) | payer OTHER, SELFPAY ==
--- NOTE | 2022-07-07 13:32 | MR_ITS ---
WS: [email or web address] MRI LUMBAR SPINE NONCONTRAST HISTORY: LOWER BACK PAIN COMPARISON: 04/17/2017 TECHNIQUE: Sagittal and axial multisequence imaging is submitted. Normal posterior lumbar alignment. Mild disc space narrowing at L5-S1. No fracture or marrow edema. Disc spaces and vertebral body heights are well-preserved. Conus terminates normally at L1. L1-L2: Normal. L2-L3: Mild disc bulge. Bilateral facet joint arthritis, RIGHT greater than LEFT. Small amount of flu id in the facet joints. L3-L4: Mild annular disc bulging with bilateral facet and ligamentum flavum arthritis. Very mild narr owing of the central canal. L4-L5: Mild annular disc bulging with a focal RIGHT paracentral disc protrusion narrowing the RIGHT s ubarticular recess. Moderate ligamentum flavum and facet arthritis. Mild progression of central and s ubarticular recess stenosis. The disc protrusion is contacting the RIGHT traversing L5 nerve root. Mi ld stenosis centrally. L5-S1: Mild annular disc bulging with bilateral facet joint arthritis. L5 is partially sacralized on the RIGHT. There is encroachment bilaterally upon the S1 nerve roots. There is also contact on the ex iting nerve roots bilaterally, greatest on the LEFT. Moderate stenosis on the LEFT and mild on the RI GHT. Paravertebral soft tissues are normal. MR/MR lumbar spine wo con* [id number] IMPRESSION: 1. Stable RIGHT paracentral disc protrusion at L4-5 contacting and slightly di splacing the traversing RIGHT L5 nerve root. 2. Mild central and bilateral subarticular recess stenosis at L4-5 has progres sed slightly since 2017. 3. Subarticular recess encroachment upon the traversing S1 nerve roots bilater ally. There is also disc contact and facet arthritis encroaching upon the alma sourav at L5-S1. Moderate stenosis LEFT foramen at L5-S1, mild progression since 2 017.
== END 2022-07-07 13:19 | disposition home or self-care (01) ==
PROVIDERS: PCP Electrodiagnostic Medicine; Visit Provider Electrodiagnostic Medicine
DX: M51.26 Other intervertebral disc displacement, lumbar region (principal); M48.061 Spinal stenosis, lumbar region without neurogenic claudication; M48.07 Spinal stenosis, lumbosacral region
CPT/HCPCS: 72148

== ENCOUNTER → 2022-09-04 08:14 | Outpatient (BNVA) | payer OTHER, SELFPAY | PROVIDERS: PCP Electrodiagnostic Medicine; Visit Provider Nurse Practitioner Family | DX: I48.91 Unspecified atrial fibrillation (principal); I10 Essential (primary) hypertension; Z79.01 Long term (current) use of anticoagulants; F17.200 Nicotine dependence, unspecified, uncomplicated; Z79.82 Long term (current) use of aspirin | CPT/HCPCS: 99214 ==

== ENCOUNTER 2023-01-18 08:24 | Outpatient (CLI) | payer OTHER, SELFPAY ==
--- NOTE | 2023-01-18 08:42 | MM_ITS ---
WS: [email or web address] DIAGNOSTIC BILATERAL DIGITAL BREAST TOMOSYNTHESIS MAMMOGRAPHY WITH CAD Bilateral breast ultrasound, limited HISTORY: 6MFU RIGHT breast. New palpable mass LEFT axilla. COMPARISON: 06/11/2022, 12/10/2021 and 11/03/2018 TECHNIQUE: Bilateral craniocaudad, mediolateral oblique, and mediolateral views are submitted with to mosaveesis and SM. Spot compression views bilateral MLO views. Computer aided detection utilized. Breast composition: There are scattered areas of fibroglandular density. Benign-appearing lymph nodes are noted within the region of the palpable markers bilaterally. There is no distortion or additiona l soft tissue mass or interval change. Ultrasound will be performed. Bilateral breast ultrasound, limited. RIGHT: Ultrasound directed to the palpable area by the patient. There is no mass identified. LEFT: Ultrasound directed to the palpable area near the axilla by the patient. No abnormality identif ied. MM/[place] [id number] IMPRESSION: BI-RADS: 2-Benign FOLLOW UP: 1 Year Follow-up Return to annual screening mammography. No abnormality is noted in the region o f the palpable nodules.
--- NOTE | 2023-01-18 09:32 | US_ITS ---
WS: [email or web address] DIAGNOSTIC BILATERAL DIGITAL BREAST TOMOSYNTHESIS MAMMOGRAPHY WITH CAD Bilateral breast ultrasound, limited HISTORY: 6MFU RIGHT breast. New palpable mass LEFT axilla. COMPARISON: 06/11/2022, 12/10/2021 and 11/03/2018 TECHNIQUE: Bilateral craniocaudad, mediolateral oblique, and mediolateral views are submitted with to mosaveesis and SM. Spot compression views bilateral MLO views. Computer aided detection utilized. Breast composition: There are scattered areas of fibroglandular density. Benign-appearing lymph nodes are noted within the region of the palpable markers bilaterally. There is no distortion or additiona l soft tissue mass or interval change. Ultrasound will be performed. Bilateral breast ultrasound, limited. RIGHT: Ultrasound directed to the palpable area by the patient. There is no mass identified. LEFT: Ultrasound directed to the palpable area near the axilla by the patient. No abnormality identif ied. US/US breast BI limited* [id number] IMPRESSION: BI-RADS: 2-Benign FOLLOW UP: 1 Year Follow-up Return to annual screening mammography. No abnormality is noted in the region o f the palpable nodules.
== END 2023-01-18 08:25 | disposition home or self-care (01) ==
PROVIDERS: PCP Electrodiagnostic Medicine; Visit Provider Nurse Practitioner
DX: N63.32 Unspecified lump in axillary tail of the left breast (principal); N63.10 Unspecified lump in the right breast, unspecified quadrant
CPT/HCPCS: 76642; 77062; G0279

== ENCOUNTER → 2023-03-29 15:13 | Outpatient (BNVA) | payer OTHER, SELFPAY | PROVIDERS: PCP Electrodiagnostic Medicine; Visit Provider Internal Medicine Cardiovascular Disease | DX: I48.91 Unspecified atrial fibrillation (principal); Z79.01 Long term (current) use of anticoagulants; I10 Essential (primary) hypertension; F17.200 Nicotine dependence, unspecified, uncomplicated | CPT/HCPCS: 99214 ==

== ENCOUNTER 2023-10-28 14:00 | Outpatient (CLI) | payer OTHER, SELFPAY ==
--- NOTE | 2023-10-28 14:05 | CT_ITS ---
WS: [email or web address] CT ABDOMEN AND PELVIS WITH AND WITHOUT CONTRAST HISTORY: CHRONIC ABDOMINAL PAIN TECHNIQUE: Unenhanced 5 mm axial imaging first performed through the abdomen. Post contrast imaging t hrough the abdomen and pelvis. Oral contrast has been provided. Sagittal and coronal reformats are s ubmitted. All CT scans at [facility] use at least one of these dose optimization techniques: automated exposure control; mA and/or kV adjustment per patient size (includes targeted exams where d ose is matched to clinical indication); or iterative reconstruction. CONTRAST: Omnipaque 350; 95 mL IV. DLP: 890.80 mGy.cm COMPARISON: 07/28/2017 Lung bases are clear. Small hiatal hernia. Normal size heart. Normal size liver. Reidentified are several low-attenuation masses within the liver. These have been previously described and evaluated since 2008. These masses have slightly increased in size but are m ost consistent with benign hemangiomas. The largest in the LEFT lobe of the liver measures 2.2 x 2.6 cm. Normal portal vein. Normal gallbladder and pancreas. Common bile duct is normal. Normal spleen. Normal RIGHT adrenal gland. Mild hyperplasia and thickening of the LEFT adrenal gland is been previou sly described. Mild increase since 2018. Kidneys are normal size. No renal calcifications or obstruct ion. Atherosclerosis aorta. Normally distended stomach. No small bowel obstruction. Marked constipation throughout the colon. Nor mal appendix. No diverticular disease. No wall thickening. Uterus is midline. No free fluid in the pelvis. Negative urinary bladder. No adenopathy or ascites. CT/CT abdomen pelvis wo/w [id number] IMPRESSION: 1. No acute abdominal or pelvic abnormalities. 2. Hepatic hemangiomas have slightly increased in size since 2018. 3. Known thickening of the LEFT adrenal gland since 2018 with mild progression . 4. No renal obstruction. 5. Marked constipation. 6. Small hiatal hernia.
[2023-10-28] MEDS: iohexol 300 mg/mL 100 mL Btl IV (15:18)
[2023-10-28] MEDS: iohexol 300 mg/mL 100 mL Btl PO (15:18)
== END 2023-10-28 14:01 | disposition home or self-care (01) ==
LOC: RAD 14:00
PROVIDERS: PCP Electrodiagnostic Medicine; Visit Provider Electrodiagnostic Medicine
DX: R10.9 Unspecified abdominal pain (principal); D18.09 Hemangioma of other sites; E27.9 Disorder of adrenal gland, unspecified; K44.9 Diaphragmatic hernia without obstruction or gangrene; K59.00 Constipation, unspecified
CPT/HCPCS: 74178; Q9967

== ENCOUNTER 2024-04-12 08:25 | Outpatient (CLI) | payer OTHER, SELFPAY ==
--- NOTE | 2024-04-12 08:33 | CT_ITS ---
WS: [email or web address] CT adrenals with and without contrast. HISTORY: MILDLY ENLARGED LEFT ADRENAL GLAND Noncontrast 5 mm imaging is performed through the abdomen with attention to the adrenal glands. Addit ional 1 minute and 15 minute delayed images are then performed through the adrenal glands. CONTRAST: Omnipaque 350; 95 mL IV. DLP: 896.[address] scans at [facility] use at least one of these dose optimization techniques: automated e xposure control; mA and/or kV adjustment per patient size (includes targeted exams where dose is matc hed to clinical indication); or iterative reconstruction. COMPARISON: 10/28/2023, 07/28/2017 Lower thorax: Lungs are clear. Normal size heart. Small hiatal hernia. Liver: Size liver with several hemangiomas which have been previously described. The largest in the L EFT lobe measures 2.0 x 2.7 cm. There are additional too small to characterize peripheral hypodensiti es. Normal portal vein. Gallbladder: Normal. Pancreas: Normal. Spleen: Normal. ADRENAL GLANDS. RIGHT: Normal. No mass or enlargement. LEFT: Low-attenuation mass in the medial LEFT adrenal limb measures 1.4 x 1.0 cm. This mass has been stable on multiple prior examinations. On the noncontrast exam Hounsfield units are low consistent wi th an adenoma. Absolute washout value of 85% also confirms adenoma. Right kidney: Normal. Left kidney: Normal. Aorta: Mild atherosclerosis. GI tract: Normal appendix. No obstruction. No adenopathy or free fluid. Abdominal wall: Small umbilical hernia contains fat only. Visualized osseous structures: No destructive bone lesions. CT/CT abdomen wo/w con [id number] IMPRESSION: 1. Long-term stability LEFT adrenal adenoma. No change since 2007. No addition al follow-up necessary. 2. Hepatic hemangiomas, stable. 3. Small hiatal hernia. 4. No ascites or adenopathy.
[2024-04-12 09:17] LABS: Blood Urea Nitrogen 14 mg/dL (8-23); Glomerular Filtration Rate 84.5 mL/min (90-130)
[2024-04-12] MEDS: iohexol 350 mg/mL 500 mL Btl (per mL) IV (09:52)
== END 2024-04-12 08:26 | disposition home or self-care (01) ==
LOC: RAD 08:26
PROVIDERS: PCP Electrodiagnostic Medicine; Visit Provider Nurse Practitioner
DX: D35.02 Benign neoplasm of left adrenal gland (principal); D18.03 Hemangioma of intra-abdominal structures; K44.9 Diaphragmatic hernia without obstruction or gangrene
CPT/HCPCS: 74170; 82565; 84520

== ENCOUNTER 2025-02-26 08:07 | Outpatient (CLI) | payer OTHER, SELFPAY ==
--- NOTE | 2025-02-26 08:12 | MM_ITS ---
WS: [email or web address] SCREENING DIGITAL TOMOSYNTHESIS MAMMOGRAM WITH CAD HISTORY: SCREENING COMPARISON: 01/18/2023, 06/11/2022, 11/18/2021 Bilateral CC and MLO with tomosynthesis views submitted. Synthetic mammography reviewed. Computer aided detection analyzed. Breast composition: The breasts are almost entirely fatty. No suspicious masses, microcalcifications or architectural distortion. MM/MM scr BI tomosynthesis [id number] IMPRESSION: BI-RADS: 1 - Negative. FOLLOW UP: 1 Year Follow-up
== END 2025-02-26 08:08 | disposition home or self-care (01) ==
LOC: RAD 08:08
PROVIDERS: PCP Electrodiagnostic Medicine; Visit Provider Nurse Practitioner
DX: Z12.31 Encounter for screening mammogram for malignant neoplasm of breast (principal)
CPT/HCPCS: 77063; 77067

== ENCOUNTER 2025-05-04 07:38 | Outpatient (CLI) | payer OTHER, SELFPAY ==
--- NOTE | 2025-05-04 07:48 | CT_ITS ---
WS: [id number] LDCT LUNG CANCER SCREENING HISTORY: HX OF NICOTINE DEPENDENCE TECHNIQUE: Axial imaging performed from the apices to 1 cm below the costophrenic angles. Coronal and sagittal reformats are submitted with axial MIP series. All CT scans at [facility] use at least one of these dose optimization techniques: automated exposure control; mA and/or kV adjustment per patient size (includes targeted exams where dose is matched to clinical indication); or iterative reconstruction. DLP: 72.41 mGy.cm DIvol: Mean CTDIvol: 1.50 (mGy) COMPARISON: 02/07/2008 Diagnostic quality: Satisfactory Lungs: Lungs are hyperinflated. Largest nodule RIGHT lower lobe measures 4 mm. LEFT apical nodule 3 mm. Benign LEFT perifissural nodule. Heart: Normal size heart with no pericardial effusion.. Other findings: No mediastinal or hilar adenopathy. Mild atherosclerosis aorta. Normal size aorta. Small hiatal hernia. 14 mm LEFT adrenal adenoma. Mild increase in thoracic kyphosis. No destructive bone lesions. CT/CT lung screening [id number] IMPRESSION: LUNG-RADS: 3-Probably Benign FOLLOW UP: 6 Month LDCT OTHER FINDINGS (S MODIFIER): None.
== END 2025-05-04 07:39 | disposition home or self-care (01) ==
LOC: RAD 07:38
PROVIDERS: PCP Electrodiagnostic Medicine; Visit Provider Nurse Practitioner
DX: Z12.2 Encounter for screening for malignant neoplasm of respiratory organs (principal); Z87.891 Personal history of nicotine dependence; J98.4 Other disorders of lung; R91.8 Other nonspecific abnormal finding of lung field; I70.0 Atherosclerosis of aorta; K44.9 Diaphragmatic hernia without obstruction or gangrene; M40.204 Unspecified kyphosis, thoracic region
CPT/HCPCS: 71271